=== PATIENT | female | born 1960 | race Caucasian/White ===

== ENCOUNTER 2020-12-30 11:43 | Emergency (ER) | payer OTHER ==
[~2020-12-30] VITALS: Ht 160 cm; Wt 75.0 kg
[~2020-12-30 11:43] MED LIST: EFFEXOR XR75 MG PO; LEVOTHROID112 MCG PO; [UNRECOGNIZED DRUG - OTHER]
[2020-12-30] MEDS ORDERED: METOPROL TAR25 MG PO (12:17)
[2020-12-30] MEDS ORDERED: ASPIRIN 81 LOW81 MG PO (12:18)
[2020-12-30 13:20] VITALS: BP 140/65
[2020-12-30] MEDS ORDERED: LEVOTHYROXIN137 MCG PO (13:23)
[2020-12-30] MEDS ORDERED: ATORVASTATIN CA20 MG PO (13:23)
[2020-12-30] MEDS ORDERED: OMEPRAZOLE DR20 MG PO (13:24)
== END 2020-12-30 13:20 | disposition home or self-care (01) | DRG 605 ==
LOC: ED 11:43
PROC: 0HQFXZZ Repair Right Hand Skin, External Approach (ICD-10-PCS; principal; 2020-12-30)
DX: S61.011A Laceration without foreign body of right thumb without damage to nail, initial encounter (principal); I10 Essential (primary) hypertension; W29.0XXA Contact with powered kitchen appliance, initial encounter

== ENCOUNTER 2021-04-20 07:17 | Day surgery (SDC) | payer OTHER ==
[~2021-04-20 07:17] MED LIST changes: +ASPIRIN 81 LOW81 MG PO; +ATORVASTATIN CA20 MG PO; +ESTRADIOL PATCH; +LEVOTHYROXIN137 MCG PO; +METOPROL TAR25 MG PO; +OMEPRAZOLE DR20 MG PO; +PAXIL40 MG PO
[2021-04-20 10:09] VITALS: BP 130/87
== END 2021-04-20 10:30 | disposition home or self-care (01) | DRG 951 ==
LOC: ENDO 07:17
PROVIDERS: ATTEND Surgery
PROC: 0DJD8ZZ Inspection of Lower Intestinal Tract, Via Natural or Artificial Opening Endoscopic (ICD-10-PCS; principal; 2021-04-20)
DX: Z12.11 Encounter for screening for malignant neoplasm of colon (principal); K64.8 Other hemorrhoids; I10 Essential (primary) hypertension